=== PATIENT | male | born 1945 | race Caucasian/White ===

== ENCOUNTER 2017-07-08 11:49 | Day surgery (SDC) | payer MEDICARE, OTHER ==
[2017-07-08] MEDS ORDERED: LIDOCAINE 2% MDV (20MG/ML) 20ML VIAL IV ONE (14:00)
[2017-07-08] MEDS ORDERED: PROPOFOL 10 MG/ML VIAL IV ONE (14:00)
[2017-07-08] MEDS ORDERED: MIDAZOLAM HCL 2MG/2ML VIAL IV ONE (14:00)
--- NOTE | 2017-07-14 16:10 | Operative Note ---
DATE OF SURGERY: 07/08/2017 OPERATION: COLONOSCOPY with cold snare polypectomy x1, hot snare polypectomy x2, hemoclip application x5 to hot snare polypectomy sites. PREOPERATIVE DIAGNOSIS: Polyp followup and surveillance. POSTOPERATIVE DIAGNOSES: 1. Large cecal polyp. 2. Large ascending colon polyp. 3. [id number]-[id number] size rectal polyp. ESTIMATED BLOOD LOSS: Minimal. SPECIMENS: Cecal polyp, ascending colon polyp, and rectal polyp. COMPLICATIONS: None apparent. PREPARATION QUALITY: Fair to good. PROCEDURE: After informed consent was obtained from the patient, he was placed in the left lateral decubitus position in the endoscopy suite, sedated and monitored by the department of anesthesia. Digital rectal exam revealed no palpable mass. A well-lubricated [id number] colonoscope was inserted into the rectum and advanced through a fairly prepared colon to the level of the cecum. In the cecum there was a large sessile polyp. This was approximately 1.3 cm in diameter and was somewhat serpiginous. This polyp was removed in piecemeal fashion with a snare and ERBE Endocut current. There was no bleeding at the site. Three hemoclips were applied to the site for wound closure purposes. In the ascending colon there was another 1.4 cm sessile polyp removed in piecemeal fashion with a polypectomy snare and ERBE Endocut current. No bleeding was noted at the site. Two clips were applied for wound closure. The remainder of the ascending colon, cecum, transverse colon, descending colon, and sigmoid colon were unremarkable. J-turn views of the anorectum revealed a 4-5 mm sessile polyp removed with a cold snare. Minimal bleeding was noted at the site. The endoscope was straightened, the rectal ampulla deflated, and the endoscope was removed. RECOMMENDATIONS: I would suggest the patient follow a soft low-fiber diet for the next week and avoid aspirin and nonsteroidal products in that timeframe if possible. I would recommend a repeat exam in 1 to 3 years pending tissue histology. As always, thank you for allowing me to participate in the healthcare of your patients. CC: Dr. Qi RODRIGUEZ
== END 2017-07-08 14:26 | disposition home or self-care (01) ==
LOC: HOP 11:49
PROVIDERS: ATTEND Internal Medicine Gastroenterology
DX: D12.2 Benign neoplasm of ascending colon (principal); D12.0 Benign neoplasm of cecum; D12.8 Benign neoplasm of rectum; I10 Essential (primary) hypertension; E11.9 Type 2 diabetes mellitus without complications